=== PATIENT | female | born 1955 | race Hispanic/Latino ===

== ENCOUNTER → 2020-11-05 | Outpatient (CLI) | payer BC, OTHER | END | disposition home or self-care (01) | LOC: RAH 08:13 | PROVIDERS: ATTEND Internal Medicine | DX: K76.0 Fatty (change of) liver, not elsewhere classified (principal); K80.20 Calculus of gallbladder without cholecystitis without obstruction; R10.11 Right upper quadrant pain; R16.0 Hepatomegaly, not elsewhere classified | CPT/HCPCS: 76705 ==

== ENCOUNTER → 2024-07-21 | Outpatient (CLI) | payer MEDICARE, OTHER ==
--- NOTE | 2024-07-21 12:19 | HMCIMG ---
CT ABD/PEL WO CON RENAL/APPY REASON: Generalized abdominal pain COMPARISON: None. FINDINGS: Lung bases are clear. There are no focal liver lesions. The liver does not appear enlarged. Spleen and pancreas appear unremarkable. There has been a previous cholecystectomy. There is a 3.7 x 3.8 x 4.6 cm well-circumscribed mass in the midportion of the left kidney. This is low attenuation but does not appear to be fluid content. This could be a cyst, again by hemorrhage or infection. A necrotic mass is also possible. Repeat exam with contrast is recommended if clinically feasible. Alternatively a renal sonogram could be performed.. The right kidney appears normal. Bowel loops appear unremarkable. This includes normal appearance of the appendix There is no evidence of free fluid or intraperitoneal air. There are no focal fluid collections. Aorta and retroperitoneum appear normal as do pelvic soft tissue structures. There is a small umbilical ventral hernia containing only mesenteric fat.. Osseous structures appear unremarkable. IMPRESSION: 1. 3.7 x 3.8 x 4.6 cm mass midportion of the left kidney, this could represent a cyst complicated by hemorrhage or infection but could also represent a low-density mass. 2. Repeat exam with contrast recommended for further evaluation, alternatively a and renal sonogram could be performed. 3. Small umbilical ventral hernia containing only mesenteric fat. 4. Otherwise unremarkable exam, no evidence of acute appendicitis. CT was performed with one or more following dose reduction techniques: automated exposure control, adjustment of the mA and kv according to patient's size, or use of a iterative reconstruction technique.
== END | disposition home or self-care (01) ==
LOC: RAH 11:18
PROVIDERS: ATTEND Internal Medicine
DX: K43.9 Ventral hernia without obstruction or gangrene (principal); R10.84 Generalized abdominal pain; Z90.49 Acquired absence of other specified parts of digestive tract
CPT/HCPCS: 74176

== ENCOUNTER → 2024-08-09 | Outpatient (CLI) | payer MEDICARE, OTHER ==
--- NOTE | 2024-08-09 16:18 | HMCIMG ---
US RENAL SONOGRAM HISTORY: Renal mass COMPARISON: CT from 07/21/2024 TECHNIQUE: Renal and bladder ultrasound study was performed. FINDINGS: The right kidney measures 14.5 x 5.3 x 4.7 cm. The left kidney measures 11.2 x 6.7 x 5.5 cm. No evidence of hydronephrosis is seen of either kidney. Both kidneys are seen. Bladder is poorly distended. The study is limited due to patient's large body habitus. There is left midpole complex renal cyst measuring 4.4 x 4.5 x 4.3 cm. IMPRESSION: 1. No hydronephrosis is seen.
== END | disposition home or self-care (01) ==
LOC: RAH 15:05
PROVIDERS: ATTEND Physician Assistant
DX: N28.1 Cyst of kidney, acquired (principal); N28.89 Other specified disorders of kidney and ureter
CPT/HCPCS: 76770